=== PATIENT | female | born 1985 | race Caucasian/White ===

== ENCOUNTER 2016-09-09 19:45 | Emergency (ER) | payer MEDICAID, OTHER ==
[2016-09-09 19:58] VITALS: BP 135/93
--- NOTE | 2016-09-09 21:00 | EDM.PDOC ---
ED HPI GENERAL MEDICAL PROBLEM - General Chief Complaint: General Stated Complaint: DULL ACHEY PAIN IN LEGS/NUMB FEET/SOB/HEAVY CHEST Time Seen by Provider: 09/09/16 20:36 Source of Information: Reports: Patient History Limitations: Reports: No limitations - History of Present Illness INITIAL COMMENTS - FREE TEXT/NARRATIVE: Patient presents for evaluation and treatment of several different complaints. Patient reports that 8 days ago she had an IUD placed. This was placed in [place]. She states that she had intercourse with her and did not use any form of control. This was a few days prior to the IUD placement. IUD was placed, in addition for future contraceptive measures, was also to be used a Plan B. She states that the IUD is a ParaGard. Patient reports that shortly after the IUD placement she began experiencing symptoms. She does live in [place] and has been traveling for nursing. She did have a negative hCG prior prior to IUD placement. She has been instructed to get an hCG several weeks after her IUD was placed. Patient reports since IUD placement she has noticed pain in her left leg. She describes this as a dull achy pain. She also reports numbness to the bilateral feet. She states that the pain in her left leg comes and goes. Patient reports that on Thursday she first noticed some chest heaviness and shortness of breath. She states today she also experienced some chest heaviness and shortness of breath that started around 2 or 3 PM. She states it was his worst from 5:30 to 6:30 PM. She's not experiencing any of this right now. She has not noticed that the chest heaviness is worse with positional movement. She reports associated symptoms of nausea. She denies any vomiting, fevers or diaphoresis. Patient reports that since the IUD placement she continues to have some pelvic cramping and discomfort. She said that she is still spotting. She has been using about one pad a day of spotting. She states that it is not as heavy as her normal menstrual cycle. She has noticed some darker brown blood as of recently. Patient reports that she has also noticed some increase in urination but denies any dysuria or hematuria. Right Leg Pain Score (Numeric/FACES): 2 - Related Data Allergies Allergy/AdvReac Type Severity Reaction Status Date / Time Sulfa (Sulfonamide Allergy Vomiting Verified 09/09/16 19:58 Antibiotics) Home Meds: Home Meds . [No Known Home Meds] 09/09/16 [History] Past Medical History Psychiatric History: Reports: Anxiety - Past Surgical History GI Surgical History: Reports: Colonoscopy Social & Family History - Tobacco Use Smoking Status *Q: Current Every Day Smoker Years of Tobacco use: 13 Packs/Tins Daily: 0.5 - Caffeine Use Caffeine Use: Reports: Coffee, Energy drinks - Recreational Drug Use Recreational Drug Use: No ED ROS GENERAL - Review of Systems Review Of Systems: See Below Constitutional: Denies: fever, diaphoresis Respiratory: Reports: Shortness of Breath Cardiovascular: Reports: Chest pain GI/Abdominal: Reports: Nausea. Denies: Vomiting : Reports: discharge (no abnormal vaginal discharge; some spotting (1 pad per day)), pain (pelvis cramping) Neurological: Reports: Numbness (bilateral feet) ED EXAM, GENERAL - Physical Exam Exam: See Below Exam Limited By: No limitations General Appearance: alert, WD/WN, no apparent distress Eye Exam: bilateral eye: EOMI, PERRL Ears: normal external exam, normal canal, hearing grossly normal, normal TMs Nose: normal inspection Throat/Mouth: Normal inspection, Normal voice, No airway compromise Respiratory/Chest: no respiratory distress, lungs clear, normal breath sounds Cardiovascular: normal peripheral pulses, regular rate, rhythm, no murmur Peripheral Pulses: 2+: posterior tibial (L), posterior tibial (R), dorsalis pedis (L), dorsalis pedis (R) GI/Abdominal: soft, non tender (Female) Exam: Normal external exam, Normal speculum exam, Vaginal discharge (thick white with brown tinge), Other (IUD stings visualized) Neurological: alert, oriented, normal cognition, normal gait Psychiatric: normal affect, normal mood Skin Exam: Warm, Dry, Normal color EKG INTERPRETATION EKG Date: 09/10/16 Time: 21:00 Rhythm: NSR Rate (beats/min): 56 [place]: normal P-wave: present QRS: normal ST-T: normal QT: normal Comparison: NA - no prior EKG EKG Interpretation Comments: NSR at 56 bpm. J-point elevation. Question pericarditis . No ischemic changes. Reviewed my myself and Dr. Lewis. Course - Vital Signs Last Recorded V/S: Last Vital Signs Temp 36.7 C 09/09/16 19:55 Pulse 65 09/09/16 23:29 Resp 18 09/09/16 19:55 BP 135/93 H 09/09/16 19:55 Pulse Ox 99 09/09/16 23:29 - Orders/Labs/Meds Labs: Laboratory Tests 09/09/16 09/09/16 09/09/16 Range/Units 20:50 21:00 21:00 WBC 8.02 (3.98-10.04) K/mm3 RBC 4.46 (3.98-5.22) M/mm3 Hgb 13.8 (11.2-15.7) gm/L Hct 41.8 (34.1-44.9) % MCV 93.7 (79.4-94.8) fl MCH 30.9 (25.6-32.2) pg MCHC 33.0 (32.2-35.5) g/dl RDW Std Deviation 42.1 (36.4-46.3) fL Plt Count 216 (182-369) K/mm3 MPV 9.4 (9.4-12.3) fl Neut % (Auto) 46.7 (34.0-71.1) % Lymph % (Auto) 40.9 (19.3-51.7) % [place] % (Auto) 8.7 (4.7-12.5) % Eos % (Auto) 3.2 (0.7-5.8) Baso % (Auto) 0.4 (0.1-1.2) % Neut # (Auto) 3.74 (1.56-6.13) K/mm3 Lymph # (Auto) 3.28 (1.18-3.74) K/mm3 [place] # (Auto) 0.70 H (0.24-0.36) K/mm3 Eos # (Auto) 0.26 (0.04-0.36) K/mm3 Baso # (Auto) 0.03 (0.01-0.08) K/mm3 D-Dimer, Quantitative < 0.19 L (0.19-0.59) mg/L Sodium (136-145) mEq/L Potassium (3.5-5.1) mEq/L Chloride (98-107) mEq/L Carbon Dioxide (21-32) mEq/L Anion Gap (5-15) BUN (7-18) mg/dL Creatinine (0.55-1.02) mg/dL Est Cr Clr Drug Dosing mL/min Estimated GFR (MDRD) (>60) mL/min BUN/Creatinine Ratio (14-18) Glucose (74-106) mg/dL Calcium (8.5-10.1) mg/dL Total Bilirubin (0.2-1.0) mg/dL AST (15-37) U/L ALT (14-59) U/L Alkaline Phosphatase (46-116) U/L CK-MB (CK-2) (0-3.6) ng/ml Troponin I (0.00-0.056) ng/mL C-Reactive Protein (<1.0) mg/dL Total Protein (6.4-8.2) g/dl Albumin (3.4-5.0) g/dl Globulin gm/dL Albumin/Globulin Ratio (1-2) HCG, Quant mIU/mL Urine Color Yellow (Yellow) Urine Appearance Clear (Clear) Urine pH 7.5 (5.0-8.0) Ur Specific House 1.020 (1.005-1.030) Urine Protein Negative (Negative) Urine Glucose (UA) Negative (Negative) Urine Ketones Negative (Negative) Urine Occult Blood Negative (Negative) Urine Nitrite Negative (Negative) Urine Bilirubin Negative (Negative) Urine Urobilinogen 0.2 (0.2-1.0) Ur Leukocyte Esterase Negative (Negative) Urine RBC 0-5 (0-5) /hpf Urine WBC 0-5 (0-5) /hpf Ur Epithelial Cells Not Reportable Ur Squamous Epith Cells 5-10 H (0-5) /hpf Amorphous Sediment Few H (NOT SEEN) /hpf Urine Bacteria Few (FEW) /hpf Urine Mucus Few (FEW) /hpf 09/09/16 09/09/16 Range/Units 21:00 21:00 WBC (3.98-10.04) K/mm3 RBC (3.98-5.22) M/mm3 Hgb (11.2-15.7) gm/L Hct (34.1-44.9) % MCV (79.4-94.8) fl MCH (25.6-32.2) pg MCHC (32.2-35.5) g/dl RDW Std Deviation (36.4-46.3) fL Plt Count (182-369) K/mm3 MPV (9.4-12.3) fl Neut % (Auto) (34.0-71.1) % Lymph % (Auto) (19.3-51.7) % [place] % (Auto) (4.7-12.5) % Eos % (Auto) (0.7-5.8) Baso % (Auto) (0.1-1.2) % Neut # (Auto) (1.56-6.13) K/mm3 Lymph # (Auto) (1.18-3.74) K/mm3 [place] # (Auto) (0.24-0.36) K/mm3 Eos # (Auto) (0.04-0.36) K/mm3 Baso # (Auto) (0.01-0.08) K/mm3 D-Dimer, Quantitative (0.19-0.59) mg/L Sodium 141 (136-145) mEq/L Potassium 4.2 (3.5-5.1) mEq/L Chloride 106 (98-107) mEq/L Carbon Dioxide 28 (21-32) mEq/L Anion Gap 11.2 (5-15) BUN 10 (7-18) mg/dL Creatinine 0.8 (0.55-1.02) mg/dL Est Cr Clr Drug Dosing 99.08 mL/min Estimated GFR (MDRD) > 60 (>60) mL/min BUN/Creatinine Ratio 12.5 L (14-18) Glucose 94 (74-106) mg/dL Calcium 9.2 (8.5-10.1) mg/dL Total Bilirubin 0.6 (0.2-1.0) mg/dL AST 14 L (15-37) U/L ALT 19 (14-59) U/L Alkaline Phosphatase 53 (46-116) U/L CK-MB (CK-2) < 0.5 (0-3.6) ng/ml Troponin I < 0.017 (0.00-0.056) ng/mL C-Reactive Protein < 0.2 (<1.0) mg/dL Total Protein 6.9 (6.4-8.2) g/dl Albumin 3.2 L (3.4-5.0) g/dl Globulin 3.7 gm/dL Albumin/Globulin Ratio 0.9 L (1-2) HCG, Quant 1.0 mIU/mL Urine Color (Yellow) Urine Appearance (Clear) Urine pH (5.0-8.0) Ur Specific House (1.005-1.030) Urine Protein (Negative) Urine Glucose (UA) (Negative) Urine Ketones (Negative) Urine Occult Blood (Negative) Urine Nitrite (Negative) Urine Bilirubin (Negative) Urine Urobilinogen (0.2-1.0) Ur Leukocyte Esterase (Negative) Urine RBC (0-5) /hpf Urine WBC (0-5) /hpf Ur Epithelial Cells Ur Squamous Epith Cells (0-5) /hpf Amorphous Sediment (NOT SEEN) /hpf Urine Bacteria (FEW) /hpf Urine Mucus (FEW) /hpf - Radiology Interpretation Free Text/Narrative:: Chest xray shows no acute intrathoracic process. - Re-Assessments/Exams Free Text/Narrative Re-Assessment/Exam: 09/09/16 23:25 Labs returned. White blood cell count is normal at 8.02, hemoglobin is 13.8 platelets are 216. D-dimer is normal less than 0.19. Sodium is 141, potassium is 4.2 chloride is 106. Anion gap 11.2. Glucose is 94. Troponin is within normal limits a less than 0.017 CK-MB is within normal limits at less than 0.5. CRP is normal at less than 0.2. HCG is one. UA is negative for any blood, nitrites or leukocytes. I reviewed the chest x-ray, EKG and labs with the patient. Despite her hCG being one I do not believe she is . I would expect slightly higher hCG level as she had intercourse about 10 days ago. Her pelvic exam showed that the strings were in place thus we decided against getting an ultrasound for further confirmation. I'm unsure at this point the exact etiology of the patient's discomfort. We have ruled out any cardiac causes. We have also rule out PE, pneumothorax and other emergent causes at this point. I recommend she follow up with her primary care provider Derrek. She is planning on returning home tomorrow. She may want to consider having the IUD out as her symptoms started after that. We will discharge her home at this time. Discharge instructions as documented. Departure - Departure Time of Disposition: 23:29 Disposition: Home, Self-Care 01 Condition: good Clinical Impression: Numbness of leg, Chest discomfort Instructions: Chest Wall Pain, [id number] Referrals: PCP,None [Primary Care Provider] - Forms: ED Department Discharge Additional Instructions: Followup with your primary care provider as planned. Rest. Please return to the ER should your symptoms change or worsen.
--- NOTE | 2016-09-10 07:37 | CR ---
Chest: Portable view of the chest was obtained. Comparison: No previous study. Heart size and mediastinum are normal. Lungs are clear. Bony structures are grossly intact. Impression: 1. Nothing acute is identified on portable chest x-ray. Diagnostic code #1
== END 2016-09-09 23:29 | disposition home or self-care (01) ==
LOC: JD.ED 19:45
DX: R07.89 Other chest pain (principal); R20.0 Anesthesia of skin; F17.210 Nicotine dependence, cigarettes, uncomplicated; F41.9 Anxiety disorder, unspecified; Z88.2 Allergy status to sulfonamides
CPT/HCPCS: 36415; 71010; 71010-26; 80053; 81001; 82553; 84484; 84702; 85025; 85379; 86140; 93005; 99284; 99285-25